=== PATIENT | male | born 1980 | race Two or more races ===

== ENCOUNTER 2024-11-25 15:37 | Outpatient (CLI) | payer OTHER ==
[~2024-11-25 15:37] MED LIST: FIBER0.52 G PO; PROBIOTIC1 EAC1 PO; SYNTHROID112 MCG PO
== END 2024-11-25 15:40 | disposition home or self-care (01) ==
LOC: SONOGRAMA 15:37
PROVIDERS: ATTEND Pathology Anatomic Pathology & Clinical Pathology
DX: D34 Benign neoplasm of thyroid gland (principal); E06.3 Autoimmune thyroiditis; E04.2 Nontoxic multinodular goiter